=== PATIENT | male | born 1955 | race Caucasian/White ===

== ENCOUNTER 2024-04-01 21:24 | Inpatient (IN) | payer OTHER, SELFPAY ==
[2024-04-01 16:58] VITALS: BP 144/70
[2024-04-01 17:21] LABS: % Basophils 0.3 % (0-2); % Eosinophils 0.5 % (0-6); % Immature Granulocytes 0.3 % (0-0.5); % Lymphocytes 9.2 % (20.5-51.1); % Monocytes 6.9 % (1.7-9.3); % Neutrophils 82.8 % (42.2-75.2); Absolute Eosinophils 0.1 10^3/uL (0-0.7); Absolute Lymphocytes 1.4 10^3/uL (1.2-3.4); Absolute Neutrophils 12.3 10^3/uL (1.4-6.5); Hematocrit 43.2 % (39.0-52.0); Mean Corp Hgb Conc. 34.7 g/dL (33.0-37.0); Mean Corpuscular Hgb 30.8 pg (27.0-31.0); Mean Corpuscular Volume 88.7 fL (80.0-94.0); Mean Platelet Volume 10.8 fL (7.4-10.4); Nucleated Red Blood Cells % 0 % (-); Platelet Count 214 10^3/uL (130-400); Red Blood Cell Count 4.87 10^6/uL (4.70-6.10); Red Cell Dist. Width 13.2 % (11.5-14.5); White Blood Cell Count 14.9 10^3/uL (4.8-10.8)
[2024-04-01 17:31] LABS: ALT (SGPT) 29 U/L (0-50); AST (SGOT) 27 U/L (17-59); Albumin 4.6 g/dl (3.5-5.0); Alkaline Phosphatase 73 U/L (38-126); Blood Urea Nitrogen 17 mg/dl (9-20); Calcium 9.7 mg/dl (8.4-10.2); Carbon Dioxide 28 mmol/L (22-30); Chloride 101 mmol/L (98-107); Glucose 143 mg/dl (70-99); Lipase 96 U/L (23-300); Potassium 4.3 mmol/L (3.5-5.1); Sodium 138 mmol/L (135-145); Total Bilirubin 1.6 mg/dl (0.2-1.3); Total Protein 7.5 g/dl (6.3-8.2); eGFR > 60.00
[2024-04-01] MEDS: DILAUDID 0.5 MG IV (18:42)
[2024-04-01] MEDS: TYLENOL 1000 MG PO (18:42)
[2024-04-01] MEDS: NSS 1000 IV ×2 (18:43→22:26)
[2024-04-01 18:47] VITALS: BP 121/54; BMI 26.6
[2024-04-01] MEDS: DILAUDID 1 MG IV (20:16)
[2024-04-01] MEDS: ZOSYN 50 IV (20:17)
--- NOTE | 2024-04-01 21:38 | ED.GENMED ---
History of Present Illness
General
Chief Complaint: Abdominal Pain
Source: patient
Exam Limitations: none
Time Seen by Provider: 04/01/24 18:07
Nursing documentation reviewed up to this point in time: agreed with
History of Present Illness
History of Present Illness:
PT IS A 68 Y/O M
with h/o inguinal hernia known
here with RLQ pian mild last night that got worse today with anorexia, nauesa, fever symptoms
no vomiting, diarrhea, dysuria, hematuria
he says his hernia is alwasy out but it is usually reducible
he feels that the pain is higher than the hernia
he went to PCP and was sent for eval for appe.
Past History
Past History
ED Past Medical History: COPD (early stages, No meds/inhalers), NIDDM (diet controlled, last A1c=5.9 in August), Psychiatric (depression) and Other (Neuropathy)
ED Past Surgical History: Orthopedic and Other (cataracts)
Social History
Tobacco: Former smoker
Personal:
Review of Systems
Review of Systems
Allergies reviewed?: Yes
All Other Systems: Not applicable
Phy Exam
Physical Exam
Physical Exam:
GENERAL: Alert , in no apparent distress
EYE: pupils equal and reactive
NECK: Supple
ENT: o/p clr, mmm.
CARDIAC: Regular rate and rhythm .
LUNGS: Clear breath sounds bilaterally, no acute respiratory distress, no wheezes/rales/rhonchi
ABDOMEN: Soft, moderate RLQ tenderness, mild voluntary guarindg; no rebound; large R inginal direct hernia, reducible;, no cvat, normal bowel sounds
NEUROLOGICAL: Alert and oriented, no focal neuro deficits
SKIN: Warm and dry, skin intact.
MUSCULOSKELETAL: No edema, well perfused. neg deborah's sign
PSYCH: Normal and appropriate interaction.
Course
Orders/Labs/Results
Orders:
Orders
04/01/24 17:05
Complete Blood Count/With Diff Urgent
Comprehensive Metabolic Panel Urgent
Lipase Urgent
04/01/24 18:26
CT Abd/Pel (IV only)-DH only Urgent
Comment:
Reason For Exam: RLQ pain,fever; h/o direct hernia (reducible)
04/01/24 18:27
0.9% Sodium Chloride 1000 ml [Nss] 1,000 ml IV BOLUS
Acetaminophen [Tylenol] 1,000 mg PO NOW STA
HYDROmorphone [Dilaudid] 0.5 mg IV NOW STA
04/01/24 18:45
Lactic Acid Urgent
04/01/24 19:34
Piperacillin/Tazo 3.375 Gram [Zosyn] 3.375 gram in 50 ml IV NOW
04/01/24 19:59
HYDROmorphone [Dilaudid] 1 mg IV NOW STA
04/01/24 20:30
Admit/Transfer Patient As Directed
Co-Sign Provider:
Level of Care: Inpatient admission
Assign to:: Medical/Surgical
Physician / Group: Armando Hoskins
Diagnosis: Acute Appendicitis
Reason for Hospitalization: OR
IV Medications
Expected length of stay greater than two midnights?: Yes
ELOS- Estimated Length of Stay in days: 1
I certify the patient meets the requirements for IP care: Yes
PRN Pain Medication Management As Directed
May give lesser potent ordered pain med per pt: Yes
preference::
Protocol:: Medication orders for pain may be administered in a
manner that supports deferring to patient preference
when the pt is:
- Requesting an ordered lesser potent pain medication.
Least to most potent pain medications are defined
as: acetaminophen < NSAID < tramadol < opioids
(morphine, oxycodone, hydromorphone).
- Requesting a lesser dose of the same medication IF
ORDERED.
- Requesting a less intrusive route of administration
if both routes are prescribed by the provider (PO <
IV).
04/01/24 20:33
Code Status As Directed
Resuscitation Status: Full Code
04/01/24 22:00
Flush (0.9% Sodium Chloride) [Flush (Nss)] See Dose Instructions IV PER PROTOCOL
Abnormal Lab Results
04/01/24
17:05
WBC 14.9 H 10^3/uL
(4.8-10.8)
MPV 10.8 H fL
(7.4-10.4)
Absolute Neuts (auto) 12.3 H 10^3/uL
(1.4-6.5)
Absolute Monos (auto) 1.0 H 10^3/uL
(0.1-0.6)
Neutrophils % 82.8 H %
(42.2-75.2)
Lymphocytes % 9.2 L %
(20.5-51.1)
Glucose 143 H mg/dl
(70-99)
Total Bilirubin 1.6 H mg/dl
(0.2-1.3)
04/01/24 17:05
04/01/24 17:05
Vital Signs
Initial and Last Documented VS:
Initial Vital Signs
Temp Pulse Resp BP Pulse Ox
37.4 C 70 16 144/70 97
04/01/24 16:58 04/01/24 16:58 04/01/24 16:58 04/01/24 16:58 04/01/24 16:58
Last Documented Vital Signs
Temp Pulse Resp BP Pulse Ox
38.8 C H 76 16 121/54 96
04/01/24 20:17 04/01/24 18:47 04/01/24 16:58 04/01/24 18:47 04/01/24 18:47
MDM/Problems Addressed
Differential Diagnosis Includes:
appe, hernia, obstruction, diverticulitis
MDM/Problems Addressed:
68 y/o M
h/o hernia
here with RLQ pain
fever for my exam
tender RLQ with guarding
hernia reducible
wbc 15
ct show sacute appe
hernias, not incarcerated
notified dr. hoskins who accepted on his service; abx
*Critical Care Note
Total Time (30-74mins, 75-104mins- exclusive of procedures): Not Applicable
ED Attending Note
-
Portions of this chart may have been created with voice recognition software.� Occasional wrong word or��sound alike� substitutions may have occurred due to the inherent limitations of voice recognition software.
Discharge Plan
Departure
Patient Disposition: Admit
Date of Disposition: 04/01/24
Time of Disposition: 19:38
Admit to: Med/Surg
Presentation/result/management discussed w/ accepting MD/DO: Hospitalist
Condition: Fair
Covid-19: Not Applicable
Discharge Problem:
Acute appendicitis
Interventions
Interventions:
*Risk Screen - Suicide Last Done: 04/01/24 16:58
*General Assessment Last Done: 04/01/24 16:58
*Neglect/Abuse Screening Last Done: 04/01/24 16:58
*ED COVID-19 Vaccine History Last Done: 04/01/24 16:58
TP-Ritlrq-Znvkujwyur Assessment Last Done: 04/01/24 20:33
[2024-04-01 21:56] VITALS: BP 108/63; BMI 26.1
--- NOTE | 2024-04-01 21:56 | PTCARENOTE ---
Pt arrived from ED via stretcher and ambulated to bed. Pt is AAOx3 and oriented to room. Pt is resting comfortably with call estes within reach.
[2024-04-01] MEDS: TORADOL 15 MG IV (22:20)
[2024-04-01 23:15] VITALS: PULSE 2; PULSE 92
--- NOTE | 2024-04-01 23:16 | HPS.HSE ---
Addendum entered and electronically signed by Chencho Horan MD 04/02/24 09:24:
Patient seen and examined independently of admitting nurse practitioner. Agree with documented history and physical.
HPI: 68-year-old male presents with acute onset of abdominal pain which began on Saturday evening. Increased in severity has localized to the right lower quadrant. Mild nausea and anorexia but no vomiting. Bowels have been moving regularly. No
similar episodes like this in the past. Mildly distended.
PMH: COPD, hypercholesterolemia, diet controlled/prediabetes, inguinal hernias that he has been following expectantly; prior history of DVT
PSH: No past abdominal surgical history
Temp 100.1, vital signs stable
NAD AAOx3
ABD: Soft, nondistended, tenderness to palpation localized in right lower quadrant with rebound and guarding at McBurney's point
CT abdomen/pelvis images reviewed as well as radiologist report. Large fecalith at the base of the appendix with the surrounding inflammatory changes no organized abscess. Some of the inflammation is bleeding into the cecum. Terminal ileum
appears unremarkable.
Assessment: 68-year-old male with acute appendicitis.
Reviewed with patient history, examination and CT imaging consistent with acute appendicitis. Discussed both operative and nonoperative management options and associated risks/benefits of approaches. Patient is in agreement to proceed with
appendectomy.
Laparoscopic appendectomy reviewed in detail with the patient. Discussed operative technique utilizing diagrams or drawings, alternative management options, benefits and potential risks such as but not limited to bleeding, infectious or wound
healing complications, iatrogenic injury to surrounding viscera. Discussed the typical postoperative recovery pending operative findings.
Any of the patient's concerns or questions were fully addressed and informed consent was obtained.
Plan: OR for laparoscopic appendectomy.
Empiric antibiotic coverage with Zosyn initiated.
Nothing by mouth, IV fluid hydration and supportive care awaiting operative room availability today.
SCDs/Lovenox for DVT prophylaxis
Original Note:
Family Physician
-
Family Physician: Bertram Ramos DO
Chief Complaint
-
Allergies
Allergy/AdvReac Type Severity Reaction Status Date / Time
citric acid* Allergy face & Verified 04/01/24 21:52
feet swell
monosodium glutamate Allergy Tongue Verified 04/01/24 21:52
Swelling
soy Allergy SAUCE-face Verified 04/01/24 21:52
& feet
swell
Home Medications
prednisone 20 mg tablet 10 mg PO DAILY PRN gout pain 04/01/24
History of Present Illness
68 y/o patient with the history of Right leg DVT, inguinal hernia (reducible) presents to ER with the c/o of Right Lower quadrant pain. Reports dull pain at Right lower quadrant started last night which worsened overnight to day with some nausea,
chills and loss of appetite. Denies any vomiting, diarrhea. Voiding without difficultly without any hematuria or dysuria. Denies any chest pain or shortness of breath.
Medical History
Past Medical History
Past Medical History: Reports COPD, Hypercholesterolemia ('borderline') and NIDDM
Additional Past Medical History:
Inguinal Hernia, AMANDA on Bipap at home, DVT LLE was on Xarelto, stopped in 2021 per Doctor. Borderline DM, Gout
Past Surgical History: Reports Orthopedic (left knee, )
Social History
Tobacco: Former Smoker
Alcohol: Occasional
Living: With Family
Family History
Family History: Not pertinent
Allergies / Home Medications
Allergies reflects when Allergies were last updated in [facility].
Home Medications with original date entered in [facility]
Allergy/Medication List:
Allergies
Allergy/AdvReac Type Severity Reaction Status Date / Time
citric acid* Allergy face & Verified 04/01/24 21:52
feet swell
monosodium glutamate Allergy Tongue Verified 04/01/24 21:52
Swelling
soy Allergy SAUCE-face Verified 04/01/24 21:52
& feet
swell
Home Medications
prednisone 20 mg tablet 10 mg PO DAILY PRN gout pain 04/01/24
Review of Systems
-
History Source: Patient
A 12 point ROS was completed and negative except as noted: Yes
Constitutional: Reports No Symptoms
EENT: Reports No Symptoms
Respiratory: Reports No Symptoms
Cardiac: Reports No Symptoms
Abdomen/GI: Reports Abdominal Pain (tender RLQ, guarding) and Nausea
: Reports No Symptoms
Musculoskeletal: Reports No Symptoms
Skin: Reports No Symptoms
Neurological: Reports No Symptoms
Endocrine: Reports No Symptoms
Hematologic/Lymphatic: Reports No Symptoms
Psych: Reports No Symptoms
Physical Exam
Vital Signs
Vital Signs
Temp Pulse Resp BP Pulse Ox
102.6 F H 92 18 108/63 94
04/01/24 21:56 04/01/24 21:56 04/01/24 21:56 04/01/24 21:56 04/01/24 21:56
Physical Exam
General: Well Developed, Well Nourished and No Apparent Distress
HEENT: NormoCephalic, Moist mucous membranes and Atraumatic
Respiratory: Clear and Non Labored Respirations
Cardiac: S1/S2 and Regular Rhythm
Breast: Deferred by me
GI: Soft, Non Distended, Normal Bowel Sounds and Tender (+ Rovsing's, RLQ tenderness. )
Rectal: Deferred by Provider
Genito-urinary: Deferred by me
Musculoskeletal: No Clubbing, No Cyanosis and No Edema
Skin: Warm and Dry
Neuro: Awake, AO x 3 and Nonfocal/grossly intact
Hematologic/Lymphatic: No Lymphadenopathy
Psych: Calm and Intact Judgment/Insight
Laboratory Results
-
04/01/24 17:05
04/01/24 17:05
Laboratory Results
Lactic Acid 1.0 mmol/L (0.7-2.0) 04/01/24 18:45
Total Bilirubin 1.6 mg/dl (0.2-1.3) H 04/01/24 17:05
AST 27 U/L (17-59) 04/01/24 17:05
ALT 29 U/L (0-50) 04/01/24 17:05
Alkaline Phosphatase 73 U/L (38-126) 04/01/24 17:05
Lipase 96 U/L (23-300) 04/01/24 17:05
Data Reviewed
-
CT Scan: Report Reviewed by me
Lab Data: Labs Reviewed by me
Impression/Plan
-
68 y/o patient with abdomen pain
# Abdomen pain likely due to Acute Appendicitis
- CT abdomen Appendicitis. 1 cm appendicolith. No definite evidence of perforation.
Bilateral inguinal hernias. 8.8 cm right inguinal hernia containing loops of small bowel. 4.5 cm left inguinal hernia containing a short segment of colon.
No associated bowel obstruction.
- Febrile
-WBC 14.9
- Continue IV Zosyn
- Continue IV Fluids
-Continue IV Dilaudid
-Continue Zofran
-Continue Tylenol
-NPO
-Admit to Med surg
-Admit to Dr. ramsey
-labs in AM
-Elevated Bilirubin likely due to appendicitis, outpatient lab.
#Hx of DVT RLE
- Xarelto stopped 2021 per
#Hx Inguinal hernia
-reducible
#Chronic Gout
-prednisone 10mg prn
#AMANDA
-Bipap at HS
#Hx COPD
-no meds or inhalers
#Borderline DM
-last A1c 5.9
-Diet control
DVT prophylaxis SCD's
Full Code
[2024-04-01 23:22] VITALS: BP 103/55
[2024-04-02] VITALS (14 sets, daily range): BP systolic 0–125; BP diastolic 51–88; PULSE 2–97
[2024-04-02] MEDS: ZOSYN 50 IV ×4 (01:07→19:55)
[2024-04-02] MEDS: DILAUDID 0.5 MG IV (03:13)
[2024-04-02 07:49] LABS: Blood Urea Nitrogen 24 mg/dl (9-20); Calcium 8.6 mg/dl (8.4-10.2); Carbon Dioxide 24 mmol/L (22-30); Chloride 103 mmol/L (98-107); Estimated Creatinine Clearance 77 ml/min; Glucose 115 mg/dl (70-99); Potassium 4.1 mmol/L (3.5-5.1); Sodium 137 mmol/L (135-145); eGFR > 60.00
[2024-04-02 08:16] LABS: Hematocrit 38.9 % (39.0-52.0); Hemoglobin 13.4 g/dL (13.0-18.0); Mean Corp Hgb Conc. 34.4 g/dL (33.0-37.0); Mean Corpuscular Hgb 30.5 pg (27.0-31.0); Mean Corpuscular Volume 88.6 fL (80.0-94.0); Mean Platelet Volume 11.1 fL (7.4-10.4); Platelet Count 166 10^3/uL (130-400); Red Blood Cell Count 4.39 10^6/uL (4.70-6.10); Red Cell Dist. Width 13.4 % (11.5-14.5); White Blood Cell Count 12.9 10^3/uL (4.8-10.8)
[2024-04-02] MEDS: TORADOL 10 MG IV ×2 (09:01→20:01)
[2024-04-02] MEDS: NSS 1000 IV ×3 (09:04→22:37)
--- NOTE | 2024-04-02 12:17 | W.SUR.PREOP ---
Pre-Operative Surgical Note
-
I have examined this patient prior to the performance of the scheduled procedure.
The patient's condition is unchanged from the time of the current History and
Physical and the patient is able to undergo the scheduled procedure.
--- NOTE | 2024-04-02 14:20 | W.IMMPOSTOP ---
Addendum entered and electronically signed by Chencho Horan MD 04/14/24 06:12:
#[id number]
Original Note:
Surgical Immed Post Op Note
-
Primary Surgeon: Marline
Assisting Surgeon: Sergey Baldwin PGY1; AV Garcia
Pre-op Diagnosis: Acute appendicitis
Post-op Diagnosis: Gangrenous, perforated acute appendicitis with abscess and localized peritonitis
Procedure Performed: Laparoscopic appendectomy
Anesthesia Type: GETA +0.25% Marcaine
Specimen / Cultures: Appendix/appendix abscess fluid
Estimated Blood Loss: 50 mL
Complications: None immediate
Operative Findings: Completely walled off, contained perforated acute appendicitis but free purulent fluid in the pelvis as well. Gangrenous perforated wall from fecalith within the proximal mid appendix. Terminal ileum adherent to abscess cavity.
Cecum relatively pliable. Laparoscopic appendectomy completed with controlling base flush with cecum utilizing Endo JANELLE purple stapler. Mild bleeding encountered during mobilization of mesoappendix controlled with hemoclips to account for
operative blood loss. Staple line appeared well-approximated and completely intact.
Drain: 19 Yoni placed at left 5 mm trocar site into the pelvis and right lower quadrant abscess cavity region/base of cecum/TI
Plan: Clear liquids for comfort initially postop monitoring for high risk of ileus
Zosyn
IV fluids
SAMUEL
Updated patient's via phone call after surgery. Discussed operative findings, procedure and anticipated postoperative hospitalization and care
[2024-04-02 14:27] LABS: Glucose - Point of Care 132 mg/dl (70-99)
[2024-04-02] MEDS: DILAUDID 0.25 MG IV (14:35)
[2024-04-02] MEDS: LOVENOX 40 MG SC (17:46)
[2024-04-03] MEDS: ZOSYN 50 IV ×4 (03:01→19:33)
[2024-04-03 03:36] VITALS: BP 102/62
[2024-04-03] MEDS: TORADOL 10 MG IV ×2 (03:38→14:38)
[2024-04-03] MEDS: FLUSH (NSS) 1 FLUSH IV (03:39)
[2024-04-03] MEDS: NSS 1000 IV ×2 (06:13→14:35)
[2024-04-03 07:54] VITALS: BP 112/65
[2024-04-03] MEDS: DILAUDID 0.5 MG IV ×2 (08:04→19:34)
--- NOTE | 2024-04-03 09:44 | W.PN.GS2 ---
Addendum entered and electronically signed by Asaf Colunga MD 04/03/24 14:29:
For CDI purposes, patient was noted to have sepsis on admission secondary to intra-abdominal infection from perforated appendicitis
Original Note:
Today's Communication / Plan
-
Will keep on clears for now
Assessment / Plan
-
This is a 68-year-old male postoperative day 1 from a laparoscopic appendectomy for perforated appendicitis. Reports return of bowel function. Doing well, expected postoperative course.
Will continue clears, IV fluids.
Continue antibiotics, anticipate a 4-day course.
Anticipate discharge home tomorrow
Time Spent
Total Time Spent with Patient (in minutes): 20
Subjective Data
-
Date of Service: April 03, 2024
Interval Events:
No acute events overnight. Slept well. Pain Controlled. Denies Nausea/Vomiting, +bowel function. Tolerating diet.
Objective Data
-
Intake and Output
04/02/24 04/03/24 04/04/24
06:59 06:59 06:59
Intake Total 3730 / 3730
Output Total 55 / 55
Balance 3675 / 3675
Intake:
Oral fluids 480 / 480
IV fluids (Total) 3050 / 3050
normosol
IV piggybacks 200 / 200
Output:
Drain Output (Total) 55 / 55
Left Lower Abdomen Miguel- 55 /
Guillaume
Other:
Number of approximated MODERATE 3 3
amounts of urine
Vital Signs
Temp Pulse Resp BP Pulse Ox
98.4 F 66 18 112/65 100
04/03/24 07:54 04/03/24 07:54 04/03/24 07:54 04/03/24 07:54 04/03/24 07:54
Lab Results
04/02/24 07:01
04/02/24 07:01
Calcium 8.6 mg/dl (8.4-10.2) 04/02/24 07:01
Total Bilirubin 1.6 mg/dl (0.2-1.3) H 04/01/24 17:05
AST 27 U/L (17-59) 04/01/24 17:05
ALT 29 U/L (0-50) 04/01/24 17:05
Alkaline Phosphatase 73 U/L (38-126) 04/01/24 17:05
Total Protein 7.5 g/dl (6.3-8.2) 04/01/24 17:05
Albumin 4.6 g/dl (3.5-5.0) 04/01/24 17:05
Physical Exam
-
GENERAL/NEURO: Awake, Alert, no distress
CHEST: Unlabored breathing on RA
ABDOMEN: Soft, Non-Tender, Non-Distended, incisions clean dry and intact. SAMUEL somewhat sanguinous
Patient has a villalobos catheter: No
Patient has a central line: No
--- NOTE | 2024-04-03 10:22 | PN.CDI ---
CDI
- -
CDI:
Physician Documentation Request
Admit Date: 04/01/24 21:24
Dear General surgery,
Please review the following and provide your response in the progress notes.
Clinical Indicators:
- On admission:
- WBC 14.9
- Tmax 102.6
- IV abx Zosyn given
- 6L IVF
- 04/02 Post Op Note 'Gangrenous, perforated acute appendicitis with abscess and localized peritonitis'
Please clarify which most accurately describes the patient:
Sepsis to due peritonitis
SIRS due to a non-infectious source
Indicate the known or suspected etiology
Indicate if there is associated organ dysfunction, such as renal or respiratory failure
Other (please specify)
Use of terms such as suspected, likely, concern for, or probable (associated with a specific diagnosis that is being evaluated, monitored, or treated as if it exists) are acceptable and can be coded in the inpatient setting, when documented at the
time of discharge.
Thank you,
Naida Ragland RN
CDI Specialist
Please use your independent medical judgment in providing your response.
[2024-04-03] MEDS: MIRALAX 17 GRAMS PO (10:39)
[2024-04-03] MEDS: COLACE 100 MG PO ×2 (10:39→19:33)
[2024-04-03 11:35] VITALS: BP 127/66
[2024-04-03 15:35] VITALS: BP 103/62
[2024-04-03] MEDS: LOVENOX 40 MG SC (17:23)
[2024-04-03 22:04] VITALS: PULSE 2; PULSE 96
[2024-04-03 23:57] VITALS: BP 106/64
[2024-04-04] MEDS: NSS IV (00:24)
[2024-04-04] MEDS: ZOSYN 50 IV ×3 (02:56→13:24)
--- NOTE | 2024-04-04 05:03 | PTCARENOTE ---
Pt assessed as per worklist flow sheet. SAMUEL draining small amts of red thin drainage. c/o need for pain meds x1. Medicated as ordered with (+) results. No s/s of distress assessed. Will continue to monitor.
[2024-04-04 07:30] VITALS: BP 116/64
[2024-04-04] MEDS: MIRALAX 17 GRAMS PO (07:44)
[2024-04-04] MEDS: COLACE 100 MG PO (07:44)
--- NOTE | 2024-04-04 12:29 | W.PN.GS2 ---
Today's Communication / Plan
-
Dispo planning with antibiotics.
DC instructions updated.
Assessment / Plan
-
This is a 68-year-old male postoperative day 2 from a laparoscopic appendectomy for perforated appendicitis. Reports return of bowel function. Doing well, expected postoperative course.
Cleared from a surgical perspective for discharge
Continue antibiotics, anticipate a 4-day course.
Time Spent
Total Time Spent with Patient (in minutes): 20
Subjective Data
-
Date of Service: April 04, 2024
Interval Events:
No acute events overnight. Slept well. Pain Controlled. Denies Nausea/Vomiting, +bowel function. Tolerating diet.
Objective Data
-
Intake and Output
04/03/24 04/04/24 04/05/24
06:59 06:59 06:59
Intake Total 3730 / 3730 4542 / 4542
Output Total /
Balance 3675 / 3675 4477 / 4477
Intake:
Oral fluids 480 / 480 1862 / 1862
IV fluids (Total) 3050 / 3050 2480 / 2480
normosol
IV piggybacks 200 / 200 200 / 200
Output:
Drain Output (Total) 65 /
Left Lower Abdomen Miguel- /
Guillaume
Other:
Number of approximated MODERATE 3 3
amounts of urine
Vital Signs
Temp Pulse Resp BP Pulse Ox
97.5 F 74 18 116/64 99
04/04/24 07:30 04/04/24 07:30 04/04/24 07:30 04/04/24 07:30 04/04/24 11:15
Lab Results
04/02/24 07:01
04/02/24 07:01
Calcium 8.6 mg/dl (8.4-10.2) 04/02/24 07:01
Total Bilirubin 1.6 mg/dl (0.2-1.3) H 04/01/24 17:05
AST 27 U/L (17-59) 04/01/24 17:05
ALT 29 U/L (0-50) 04/01/24 17:05
Alkaline Phosphatase 73 U/L (38-126) 04/01/24 17:05
Total Protein 7.5 g/dl (6.3-8.2) 04/01/24 17:05
Albumin 4.6 g/dl (3.5-5.0) 04/01/24 17:05
Physical Exam
-
GENERAL/NEURO: Awake, Alert, no distress
CHEST: Unlabored breathing on RA
ABDOMEN: Soft, Non-Tender, Non-Distended, incisions clean dry and intact. SAMUEL serous sang
Patient has a villalobos catheter: No
Patient has a central line: No
--- NOTE | 2024-04-04 14:09 | PTCARENOTE ---
SAMUEL drain removed by surgery. pt awaiting DC order.
[2024-04-04 14:37] VITALS: BP 136/65
--- NOTE | 2024-04-04 15:15 | CM ---
Patient seen at bedside earlier today. Patient stated that he lives with his in a 3 story home. Patient has no DME at home and does not anticipate needing any VN services or supports. Patient PCP is Dr. Mora and he uses the [facility] in
[place]. Patient has no needs at discharge. CM provided IMM and patient asked for time to review and would give to nursing prior to discharge. CM will continue to follow for discharge planning needs.
Plan; home with no needs anticipate.
== END 2024-04-04 14:42 | disposition home or self-care (01) | DRG 853 ==
LOC: 4 EAST ACU 21:24
PROVIDERS: Emergency Medicine; Nurse Practitioner Gerontology; Physician Assistant; Surgery; ADMITTING PHYSICIAN Surgery; EMERGENCY PHYSICIAN Emergency Medicine; FAMILY PHYSICIAN Family Medicine
PROC: 5A09357 Assistance with Respiratory Ventilation, Less than 24 Consecutive Hours, Continuous Positive Airway Pressure (ICD-10-PCS; 2024-04-01)
PROC: 0DTJ4ZZ Resection of Appendix, Percutaneous Endoscopic Approach (ICD-10-PCS; 2024-04-02)
DX: A41.9 Sepsis, unspecified organism (principal); K35.33 Acute appendicitis with perforation, localized peritonitis, and gangrene, with abscess; R17 Unspecified jaundice; J44.9 Chronic obstructive pulmonary disease, unspecified; E11.36 Type 2 diabetes mellitus with diabetic cataract; F32.A Depression, unspecified; E11.40 Type 2 diabetes mellitus with diabetic neuropathy, unspecified; E78.00 Pure hypercholesterolemia, unspecified; K56.41 Fecal impaction; G47.33 Obstructive sleep apnea (adult) (pediatric); K40.20 Bilateral inguinal hernia, without obstruction or gangrene, not specified as recurrent; M1A.9XX0 Chronic gout, unspecified, without tophus (tophi); K38.1 Appendicular concretions; Z87.891 Personal history of nicotine dependence; Z86.718 Personal history of other venous thrombosis and embolism
CPT/HCPCS: 88304; 88305; 74177; 80048; 80053; 82962; 83605; 83690; 85025; 85027; 87070; 87075; 87077; 87186; 87205; 88112; 94660; 96361; 96365; 96375; 96376; 99284; Q9967

== ENCOUNTER 2024-07-02 14:57 | Emergency (ER) | payer OTHER, SELFPAY ==
[2024-07-02 18:31] VITALS: BMI 25.7
[2024-07-02 19:25] LABS: % Basophils 0.4 % (0-2); % Eosinophils 4.2 % (0-6); % Immature Granulocytes 0.1 % (0-0.5); % Lymphocytes 27.7 % (20.5-51.1); % Monocytes 8.2 % (1.7-9.3); % Neutrophils 59.4 % (42.2-75.2); Absolute Eosinophils 0.3 10^3/uL (0-0.7); Absolute Monocytes 0.6 10^3/uL (0.1-0.6); Absolute Neutrophils 4.4 10^3/uL (1.4-6.5); Hematocrit 41.7 % (39.0-52.0); Hemoglobin 14.4 g/dL (13.0-18.0); Mean Corp Hgb Conc. 34.5 g/dL (33.0-37.0); Mean Corpuscular Hgb 30.4 pg (27.0-31.0); Mean Corpuscular Volume 88.2 fL (80.0-94.0); Mean Platelet Volume 10.3 fL (7.4-10.4); Nucleated Red Blood Cells % 0 % (-); Platelet Count 199 10^3/uL (130-400); Red Blood Cell Count 4.73 10^6/uL (4.70-6.10); Red Cell Dist. Width 13.4 % (11.5-14.5); White Blood Cell Count 7.4 10^3/uL (4.8-10.8)
[2024-07-02 19:43] LABS: ALT (SGPT) 32 U/L (0-50); AST (SGOT) 29 U/L (17-59); Albumin 4.8 g/dl (3.5-5.0); Alkaline Phosphatase 57 U/L (38-126); Blood Urea Nitrogen 29 mg/dl (9-20); Calcium 9.8 mg/dl (8.4-10.2); Carbon Dioxide 29 mmol/L (22-30); Chloride 109 mmol/L (98-107); Estimated Creatinine Clearance 84 ml/min; Glucose 82 mg/dl (70-99); Potassium 5.3 mmol/L (3.5-5.1); Sodium 144 mmol/L (135-145); Total Bilirubin 0.8 mg/dl (0.2-1.3); Total Protein 7.5 g/dl (6.3-8.2); eGFR > 60.00
[2024-07-02] MEDS: XARELTO 15 MG PO (20:00)
--- NOTE | 2024-07-03 20:33 | ED.GENMED ---
History of Present Illness
General
Chief Complaint: DVT/Possible Blood Clot
Source: patient
Exam Limitations: none
Time Seen by Provider: 07/02/24 18:49
Nursing documentation reviewed up to this point in time: agreed with
History of Present Illness
History of Present Illness:
Patient to ED with complaint of swelling to RLE. States he developed pain to posterior right knee approx 1 week ago. Pain is now in calf. Hx of DVT and states symptoms are the same. Denies any cp/pressure, SOB. Brought self to ED for eval
Past History
Past History
ED Past Medical History: COPD (early stages, No meds/inhalers), NIDDM (diet controlled, last A1c=5.9 in August), Psychiatric (depression) and Other (Neuropathy)
ED Past Surgical History: Orthopedic and Other (cataracts)
Social History
Tobacco: Former smoker
Personal:
Review of Systems
Review of Systems
Allergies reviewed?: Yes
All Other Systems: ROS reviewed and negative except as documented in HPI and ROS
Constitutional: Reports no symptoms
EENT: Reports no symptoms
Respiratory: Reports no symptoms
Cardiac: Reports no symptoms
ABD/GI: Reports no symptoms
Musculoskeletal: Reports other (right posterrior knee and calf pain and swelling)
Skin: Reports no symptoms
Neurological: Reports no symptoms
Psychiatric: Reports no symptoms
Phy Exam
General Physical Exam
General Presentation: mild distress
General age: appears stated age
General Skin: warm and dry
General Habitus: normal
General Mental: alert
Cardiovascular Exam
Cardiovascular Exam: regular rate/rhythm
Pulmonary Exam
Pulmonary Exam: no respiratory distress and chest non tender
Musculoskeletal Exam
Musculoskeletal Exam: full ROM, neuro vasc intact and other (pain and swelling to right posterior knee and calf. No erythema. )
Skin Exam
Skin Exam: normal color, warm/dry and no rash
Psychiatric Exam
Psychiatric Exam: normal mood/affect
Course
Orders/Labs/Results
Orders:
Orders
07/02/24 15:12
US Periph Venous LOWER Ext RT Urgent
Comment:
Reason For Exam: swelling
07/02/24 19:17
Complete Blood Count/With Diff Urgent
Comprehensive Metabolic Panel Urgent
07/02/24 19:44
Rivaroxaban [Xarelto] 15 mg PO NOW STA
Abnormal Lab Results
07/02/24
19:17
Potassium 5.3 H mmol/L
(3.5-5.1)
Chloride 109 H mmol/L
(98-107)
BUN 29 H mg/dl
(9-20)
07/02/24 19:17
07/02/24 19:17
Vital Signs
Initial and Last Documented VS:
Initial Vital Signs
Temp Pulse Resp Pulse Ox
98.3 F 76 16 98
07/02/24 15:09 07/02/24 15:09 07/02/24 15:09 07/02/24 15:09
Last Documented Vital Signs
Temp Pulse Resp Pulse Ox
98.3 F 76 16 98
07/02/24 15:09 07/02/24 15:09 07/02/24 15:09 07/02/24 18:32
*Radiology
Radiology exam reviewed: radiology read reviewed
*Pulse Oximetry
Patient hypoxic: no
*Critical Care Note
Total Time (30-74mins, 75-104mins- exclusive of procedures): Not Applicable
Update Note
Update Note:
Patient to ED with pain and swelling to RLE. history of DVT, was on xarelto in the past. US tonight confirms DVT. Discussed findings with patient. WIll restart xarelto. Given 1st dose in ED. He is dischared home and will follow up with PCP.
Given instructions on s/s to return to ED and he is agreeable to plan.
ED Attending Note
-
Portions of this chart may have been created with voice recognition software.� Occasional wrong word or��sound alike� substitutions may have occurred due to the inherent limitations of voice recognition software.
Discharge Plan
Departure
Patient Disposition: Home (Routine Discharge)
Date of Disposition: 07/02/24
Time of Disposition: 19:47
Patient with high blood pressure during this ER visit?: No
Condition: Good
Covid-19: Not Applicable
Discharge Problem:
DVT (deep venous thrombosis)
Instructions: Deep Vein Thrombosis (Blood Clots in the Legs) (DC)
Prescriptions:
New
Xarelto 15 mg tablet
15 mg PO BID Qty: 42 0RF
Xarelto 20 mg tablet
20 mg PO DAILY Qty: 9 0RF
No Action
prednisone 20 mg tablet
10 mg PO DAILY PRN (Reason: gout pain)
acetaminophen 325 mg tablet
650 mg PO Q6HPRN PRN (Reason: mild pain) Qty: 14 0RF
amoxicillin-pot clavulanate 875-125 mg tablet
1 tab PO Q12 Qty: 8 0RF
ibuprofen 600 mg tablet
600 mg PO Q6H PRN (Reason: pain) Qty: 14 0RF
tramadol 50 mg tablet
25 mg PO Q6HPRN PRN (Reason: severe pain/breakthrough pain) Qty: 8 0RF
Referrals:
Bertram Ramos, [Family Provider] - Tomorrow
Activity Restrictions/Additional Instructions:
Xarelto 15mg every 12 hours x 21 days, then 20mg every night
Return to the emergency department immediately for any changes in/worsening of your symptoms
Interventions
Interventions:
*Risk Screen - Suicide Last Done: 07/02/24 15:09
*General Assessment Last Done: 07/02/24 15:09
*Neglect/Abuse Screening Last Done: 07/02/24 15:09
*ED- Fall Risk Assessment Last Done: 07/02/24 18:32
*ED COVID-19 Vaccine History Last Done: 07/02/24 18:32
*Nursing Disposition Last Done: 07/02/24 20:04
ED- Cardiac Assessment Last Done: 07/02/24 18:32
ED- Pulmonary Assessment Last Done: 07/02/24 18:32
ED-Peripheral Vascular Assessment Last Done: 07/02/24 18:32
ED-Skin Assessment Last Done: 07/02/24 18:32
Discharge Date and Time
Discharge Date/Time: 07/02/24 20:13
Print Language: PUERTO RICAN
== END 2024-07-02 20:13 | disposition home or self-care (01) ==
LOC: EMR 14:57
PROVIDERS: Nurse Practitioner; EMERGENCY PHYSICIAN Student in an Organized Health Care Education/Training Program; FAMILY PHYSICIAN Family Medicine
DX: I82.401 Acute embolism and thrombosis of unspecified deep veins of right lower extremity (principal); R22.41 Localized swelling, mass and lump, right lower limb; F32.A Depression, unspecified; J44.9 Chronic obstructive pulmonary disease, unspecified; E11.40 Type 2 diabetes mellitus with diabetic neuropathy, unspecified; Z79.01 Long term (current) use of anticoagulants; Z86.718 Personal history of other venous thrombosis and embolism; Z87.891 Personal history of nicotine dependence
CPT/HCPCS: 99284; 80053; 85025; 93971

== ENCOUNTER → 2024-07-10 10:22 | Outpatient (REF) | payer OTHER, SELFPAY | LOC: RAD 10:22 | PROVIDERS: ATTENDING PHYSICIAN Family Medicine | DX: I82.401 Acute embolism and thrombosis of unspecified deep veins of right lower extremity (principal) | CPT/HCPCS: 93971 ==

== ENCOUNTER 2024-08-06 07:35 | Outpatient (RCR) | payer OTHER, SELFPAY | END 2024-08-06 23:59 | disposition home or self-care (01) | LOC: RPT 07:35 | PROVIDERS: ATTENDING PHYSICIAN Orthopaedic Surgery; FAMILY PHYSICIAN Family Medicine | DX: M25.561 Pain in right knee (principal); M25.562 Pain in left knee | CPT/HCPCS: 97162; 97530 ==

== ENCOUNTER 2024-09-01 13:30 | Outpatient (RCR) | payer OTHER, SELFPAY | END 2024-09-01 23:59 | disposition home or self-care (01) | LOC: RPT 13:30 | PROVIDERS: ATTENDING PHYSICIAN Orthopaedic Surgery; FAMILY PHYSICIAN Family Medicine | DX: M25.561 Pain in right knee (principal); M17.11 Unilateral primary osteoarthritis, right knee (principal); M17.12 Unilateral primary osteoarthritis, left knee; M25.562 Pain in left knee; Z73.6 Limitation of activities due to disability | CPT/HCPCS: 97110; 97116 ==

== ENCOUNTER → 2024-09-09 10:56 | Outpatient (REF) | payer OTHER, SELFPAY ==
[2024-09-09 13:12] LABS: INR 1.39; PT 17.6 Sec (11.4-14.6)
[2024-09-12 02:26] LABS: Beta-2-Glycoprotein I Ab. IgG <10 SGU (<=20); Beta-2-Glycoprotein I Ab. IgM <10 SMU (<=20)
== END ==
LOC: REG 10:56
PROVIDERS: ATTENDING PHYSICIAN Internal Medicine Hematology & Oncology; FAMILY PHYSICIAN Family Medicine
DX: I82.401 Acute embolism and thrombosis of unspecified deep veins of right lower extremity (principal)
CPT/HCPCS: 36415; 81240; 81241; 85300; 85305; 85610; 85613; 85730; 86146; 86147

== ENCOUNTER → 2024-09-16 10:54 | Outpatient (REF) | payer OTHER, SELFPAY ==
[2024-09-16 11:34] LABS: INR 2.44; PT 26.9 Sec (11.4-14.6)
== END ==
LOC: REG 10:54
PROVIDERS: ATTENDING PHYSICIAN Internal Medicine Hematology & Oncology; FAMILY PHYSICIAN Family Medicine
DX: I82.401 Acute embolism and thrombosis of unspecified deep veins of right lower extremity (principal)
CPT/HCPCS: 36415; 85610

== ENCOUNTER → 2024-09-23 11:31 | Outpatient (REF) | payer OTHER, SELFPAY ==
[2024-09-23 12:37] LABS: INR 2.25; PT 25.4 Sec (11.4-14.6)
== END ==
LOC: REG 11:31
PROVIDERS: ATTENDING PHYSICIAN Internal Medicine Hematology & Oncology; FAMILY PHYSICIAN Family Medicine
DX: I82.401 Acute embolism and thrombosis of unspecified deep veins of right lower extremity (principal)
CPT/HCPCS: 36415; 85610

== ENCOUNTER → 2024-09-30 12:08 | Outpatient (REF) | payer OTHER, SELFPAY ==
[2024-09-30 12:56] LABS: INR 2.26; PT 25.4 Sec (11.4-14.6)
== END ==
LOC: REG 12:08
PROVIDERS: ATTENDING PHYSICIAN Internal Medicine Hematology & Oncology; FAMILY PHYSICIAN Family Medicine
DX: I82.401 Acute embolism and thrombosis of unspecified deep veins of right lower extremity (principal)
CPT/HCPCS: 36415; 85610

== ENCOUNTER → 2024-10-07 10:06 | Outpatient (REF) | payer OTHER, SELFPAY ==
[2024-10-07 10:41] LABS: INR 2.16; PT 24.5 Sec (11.4-14.6)
== END ==
LOC: REG 10:06
PROVIDERS: ATTENDING PHYSICIAN Internal Medicine Hematology & Oncology; FAMILY PHYSICIAN Family Medicine
DX: I82.401 Acute embolism and thrombosis of unspecified deep veins of right lower extremity (principal)
CPT/HCPCS: 36415; 85610

== ENCOUNTER → 2024-10-15 14:18 | Outpatient (REF) | payer OTHER, SELFPAY ==
[2024-10-15 18:48] LABS: INR 2.04; PT 23.5 Sec (11.4-14.6)
== END ==
LOC: REG 14:18
PROVIDERS: ATTENDING PHYSICIAN Internal Medicine Hematology & Oncology; FAMILY PHYSICIAN Family Medicine
DX: I82.401 Acute embolism and thrombosis of unspecified deep veins of right lower extremity (principal)
CPT/HCPCS: 36415; 85610

== ENCOUNTER → 2024-10-21 13:12 | Outpatient (REF) | payer OTHER, SELFPAY ==
[2024-10-21 14:22] LABS: INR 1.75; PT 20.9 Sec (11.4-14.6)
== END ==
LOC: REG 13:12
PROVIDERS: ATTENDING PHYSICIAN Internal Medicine Hematology & Oncology; FAMILY PHYSICIAN Family Medicine
DX: I82.401 Acute embolism and thrombosis of unspecified deep veins of right lower extremity (principal)
CPT/HCPCS: 36415; 85610

== ENCOUNTER → 2024-10-28 14:57 | Outpatient (REF) | payer OTHER, SELFPAY ==
[2024-10-28 16:15] LABS: INR 1.82; PT 21.6 Sec (11.4-14.6)
== END ==
LOC: REG 14:57
PROVIDERS: ATTENDING PHYSICIAN Internal Medicine Hematology & Oncology; FAMILY PHYSICIAN Family Medicine
DX: I82.401 Acute embolism and thrombosis of unspecified deep veins of right lower extremity (principal)
CPT/HCPCS: 36415; 85610

== ENCOUNTER → 2024-11-04 11:07 | Outpatient (REF) | payer OTHER, SELFPAY ==
[2024-11-04 12:27] LABS: INR 2.10; PT 24.1 Sec (11.4-14.6)
== END ==
LOC: REG 11:07
PROVIDERS: ATTENDING PHYSICIAN Internal Medicine Hematology & Oncology; FAMILY PHYSICIAN Family Medicine
DX: I82.401 Acute embolism and thrombosis of unspecified deep veins of right lower extremity (principal)
CPT/HCPCS: 36415; 85610

== ENCOUNTER → 2024-11-11 10:42 | Outpatient (REF) | payer OTHER, SELFPAY ==
[2024-11-11 11:39] LABS: INR 1.82; PT 21.6 Sec (11.4-14.6)
== END ==
LOC: REG 10:42
PROVIDERS: ATTENDING PHYSICIAN Internal Medicine Hematology & Oncology; FAMILY PHYSICIAN Family Medicine
DX: I82.401 Acute embolism and thrombosis of unspecified deep veins of right lower extremity (principal)
CPT/HCPCS: 36415; 85610

== ENCOUNTER → 2024-11-18 14:12 | Outpatient (REF) | payer OTHER, SELFPAY ==
[2024-11-18 15:04] LABS: INR 2.21; PT 24.9 Sec (11.4-14.6)
== END ==
LOC: REG 14:12
PROVIDERS: ATTENDING PHYSICIAN Internal Medicine Hematology & Oncology; FAMILY PHYSICIAN Family Medicine
DX: I82.401 Acute embolism and thrombosis of unspecified deep veins of right lower extremity (principal)
CPT/HCPCS: 36415; 85610

== ENCOUNTER → 2024-11-25 15:09 | Outpatient (REF) | payer OTHER, SELFPAY ==
[2024-11-25 17:02] LABS: INR 2.40; PT 26.6 Sec (11.4-14.6)
== END ==
LOC: REG 15:09
PROVIDERS: ATTENDING PHYSICIAN Internal Medicine Hematology & Oncology; FAMILY PHYSICIAN Family Medicine
DX: I82.401 Acute embolism and thrombosis of unspecified deep veins of right lower extremity (principal)
CPT/HCPCS: 36415; 85610

== ENCOUNTER → 2024-12-02 12:20 | Outpatient (REF) | payer OTHER, SELFPAY ==
[2024-12-02 13:11] LABS: INR 2.23; PT 25.1 Sec (11.4-14.6)
== END ==
LOC: REG 12:20
PROVIDERS: ATTENDING PHYSICIAN Internal Medicine Hematology & Oncology; FAMILY PHYSICIAN Family Medicine
DX: I82.401 Acute embolism and thrombosis of unspecified deep veins of right lower extremity (principal)
CPT/HCPCS: 36415; 85610

== ENCOUNTER → 2024-12-09 13:12 | Outpatient (REF) | payer OTHER, SELFPAY ==
[2024-12-09 14:14] LABS: INR 1.99; PT 23.1 Sec (11.4-14.6)
== END ==
LOC: REG 13:12
PROVIDERS: ATTENDING PHYSICIAN Internal Medicine Hematology & Oncology; FAMILY PHYSICIAN Family Medicine
DX: I82.401 Acute embolism and thrombosis of unspecified deep veins of right lower extremity (principal)
CPT/HCPCS: 36415; 85610

== ENCOUNTER → 2025-01-11 12:59 | Outpatient (REF) | payer OTHER, SELFPAY ==
[2025-01-11 15:13] LABS: INR 2.32; PT 25.6 Sec (11.4-14.6)
== END ==
LOC: REG 12:59
PROVIDERS: ATTENDING PHYSICIAN Internal Medicine Hematology & Oncology
DX: I82.401 Acute embolism and thrombosis of unspecified deep veins of right lower extremity (principal)
CPT/HCPCS: 36415; 85610